=== PATIENT | female | born 1950 | race Caucasian/White ===

== ENCOUNTER 2019-02-03 10:52 | Emergency (ER) | payer OTHER ==
[~2019-02-03] VITALS: Ht 152.4 cm; Wt 68.0 kg
[~2019-02-03 10:52] MED LIST: CILOSTAZOL100 MG; COZAAR50 MG; HUMALOG100 U/ML; LANTUS100 U/ML; NAPR500T14; NEURONTIN800 MG; ZOCOR20 MG
== END 2019-02-03 18:01 | disposition home or self-care (01) ==
LOC: ER 10:52
DX: E11.65 Type 2 diabetes mellitus with hyperglycemia (principal); I87.2 Venous insufficiency (chronic) (peripheral); I77.89 Other specified disorders of arteries and arterioles; R60.0 Localized edema; M79.604 Pain in right leg

== ENCOUNTER 2022-09-03 20:13 | Inpatient (IN) | payer OTHER ==
[~2022-09-03] VITALS: Ht 152.4 cm; Wt 77.1 kg
[2022-09-05] MEDS ORDERED: ALENDRONATE SOD70 MG (08:58)
[2022-09-05] MEDS ORDERED: LISINOPRIL10 MG (08:59)
== END 2022-09-12 22:23 | disposition home or self-care (01) | DRG 280 ==
LOC: ER 20:13 → ICU-2 09-04 10:34 → MEDJ 09-05 13:32 → ICU 09-05 21:12 → MEDJ 09-08 21:18 → MEDI 09-11 11:51
PROVIDERS: ADMIT Specialist; ATTEND Specialist
PROC: B246ZZZ Ultrasonography of Right and Left Heart (ICD-10-PCS; principal; 2022-09-04)
PROC: B34JZZZ Ultrasonography of Left Upper Extremity Arteries (ICD-10-PCS; 2022-09-04)
PROC: 02HV33Z Insertion of Infusion Device into Superior Vena Cava, Percutaneous Approach (ICD-10-PCS; 2022-09-04)
PROC: 3E0F7GC Introduction of Other Therapeutic Substance into Respiratory Tract, Via Natural or Artificial Opening (ICD-10-PCS; 2022-09-04)
PROC: 5A0935A Assistance with Respiratory Ventilation, Less than 24 Consecutive Hours, High Flow/Velocity Cannula (ICD-10-PCS; 2022-09-05)
PROC: B54NZZZ Ultrasonography of Left Upper Extremity Veins (ICD-10-PCS; 2022-09-08)
PROC: BB24ZZZ Computerized Tomography (CT Scan) of Bilateral Lungs (ICD-10-PCS; 2022-09-09)
PROC: 4A12X4Z Monitoring of Cardiac Electrical Activity, External Approach (ICD-10-PCS; 2022-09-09)
DX: I21.4 Non-ST elevation (NSTEMI) myocardial infarction (principal); E11.00 Type 2 diabetes mellitus with hyperosmolarity without nonketotic hyperglycemic-hyperosmolar coma (NKHHC); J90 Pleural effusion, not elsewhere classified; Z79.4 Long term (current) use of insulin; E11.65 Type 2 diabetes mellitus with hyperglycemia; I11.0 Hypertensive heart disease with heart failure; I50.9 Heart failure, unspecified; K52.9 Noninfective gastroenteritis and colitis, unspecified

== ENCOUNTER 2023-07-17 09:06 | Inpatient (IN) | payer OTHER ==
[~2023-07-17] VITALS: Ht 157.5 cm; Wt 72.6 kg
[~2023-07-17 09:06] MED LIST changes: +ALENDRONATE SOD70 MG; +LISINOPRIL10 MG
[2023-07-17 11:28] LABS: HEMATOCRIT 28.3 % (36.0-45.00); HEMOGLOBIN 9.3 g/dL (12.0-15.00); MEAN CORPUSCULAR HGB CONC 32.9 g/dl (32.0-36.0); PLATELET COUNT 454 K/uL (150-450); RED BLOOD COUNT 3.01 M/uL (4.00-6.00); RED CELL DISTRIBUTION WIDTH 13.8 % (11.5-14.5)
[2023-07-17] MEDS ORDERED: SODIUM HYPOCHLORITE 1OZ TOP SCH (11:36)
[2023-07-17] MEDS ORDERED: CEFTRIAXONE SODIUM 1,000 MG VIAL IV ONE (13:00)
[2023-07-17 13:52] LABS: ALBUMIN 3.2 gm/dL (3.4-5.0); BILIRUBIN TOTAL 0.24 mg/dL (0.3-1.2); CALCIUM 9.6 mg/dL (8.5-10.1); CREATININE SERUM 0.87 mg/dL (0.55-1.02); GFR 63.82; GLOBULINA 4.9 G/DL (2.4-3.5); POTASSIUM 4.51 mEq/L (3.5-5.1); TOTAL PROTEIN 8.1 gm/dL (6.4-8.2)
[2023-07-17] MEDS ORDERED: CEFEPIME HCL 2,000 MG in 0.9 % SODIUM CHLORIDE 100 ML IV SCH (18:05)
[2023-07-17] MEDS ORDERED: FUROsemide 20 MG TABLET PO SCH (18:09)
[2023-07-17] MEDS ORDERED: SPIRONOLACTONE 25 MG TABLET PO SCH (18:10)
[2023-07-17] MEDS ORDERED: ENALAPRILAT DIHYDRATE 1.25 MG/ML VIAL IV PRN (18:15)
[2023-07-17] MEDS ORDERED: RINGERS SOLUTION,LACTATED 1,000 ML IV SCH (18:15)
[2023-07-17] MEDS ORDERED: INSULIN LISPRO 1,000 UNIT/10 ML UNITS SUBCUTANEO PRN (18:15)
[2023-07-17] MEDS ORDERED: DEXTROSE 50 % IN WATER 0.5 G/ML DISP.SYRIN IV PRN (18:15)
[2023-07-17] MEDS ORDERED: VANCOMYCIN HCL 1,000 MG VIAL IV ONE (18:15)
[2023-07-17] MEDS ORDERED: GABAPENTIN 800 MG TABLET PO SCH (21:00)
[2023-07-17] MEDS ORDERED: VANCOMYCIN HCL 1,000 MG VIAL IV SCH (21:00)
[2023-07-17] MEDS ORDERED: FAMOTIDINE/PF 20 MG/2 ML VIAL IV SCH (21:00)
[2023-07-18] MEDS ORDERED: ENOXAPARIN SODIUM 40 MG/0.4 ML SYRINGE SUBCUTANEO SCH (09:00)
[2023-07-18] MEDS ORDERED: ASPIRIN 81 MG TABLET.EC PO SCH (09:00)
[2023-07-18] MEDS ORDERED: VANCOMYCIN HCL 5 MG/ML REDILUIDO IV SCH (09:00)
[2023-07-18] MEDS ORDERED: IRON FUM,PS/FOLIC/BCOMP,C NO.9 1 CAP CAPSULE PO SCH (09:00)
[2023-07-18] MEDS ORDERED: CLOPIDOGREL BISULFATE 75 MG TABLET PO SCH (09:00)
[2023-07-18] MEDS ORDERED: LACTOBACILLUS ACIDOPHILUS 1 CAP CAP PO SCH (09:00)
[2023-07-18] MEDS ORDERED: KETOROLAC TROMETHAMINE 30 MG VIAL IV SCH (13:00)
[2023-07-18] MEDS ORDERED: ATORVASTATIN CALCIUM 40 MG TABLET PO SCH (17:00)
[2023-07-18] MEDS ORDERED: METROnidazole 500 MG TABLET PO SCH (19:35)
[2023-07-18 22:41] LABS: CALCIUM 8.9 mg/dL (8.5-10.1); CREATININE SERUM 1.16 mg/dL (0.55-1.02); GFR 45.79; POTASSIUM 5.26 mEq/L (3.5-5.1)
[2023-07-19 08:40] LABS: ALBUMIN 2.6 gm/dL (3.4-5.0); BILIRUBIN TOTAL 0.39 mg/dL (0.3-1.2); CALCIUM 8.7 mg/dL (8.5-10.1); CREATININE SERUM 1.06 mg/dL (0.55-1.02); GFR 50.81; GLOBULINA 3.5 G/DL (2.4-3.5); MAGNESIUM 2.1 mg/dL (1.8-2.4); PHOSPHOROUS 2.5 mg/dL (2.5-4.9); POTASSIUM 4.85 mEq/L (3.5-5.1); TOTAL PROTEIN 6.1 gm/dL (6.4-8.2); TSH 1.84 uIU/mL (0.358-3.74)
[2023-07-19 09:34] LABS: MEAN CORPUSCULAR HGB CONC 33.8 g/dl (32.0-36.0); PLATELET COUNT 388 K/uL (150-450); RED BLOOD COUNT 2.46 M/uL (4.00-6.00); RED CELL DISTRIBUTION WIDTH 14.1 % (11.5-14.5)
[2023-07-19 09:38] LABS: HEMATOCRIT 23.1 % (36.0-45.00); MEAN CORPUSCULAR HEMOGLOBIN 31.7 pg (27.00-32.0)
[2023-07-19 09:41] LABS: HEMOGLOBIN 7.8 g/dL (12.0-15.00)
[2023-07-19] MEDS ORDERED: FUROsemide 20 MG/2 ML VIAL IV SCH (09:45)
[2023-07-19] MEDS ORDERED: SODIUM POLYSTYRENE SULFONATE 15 G/4 TSP TSP PO SCH (17:00)
[2023-07-19] MEDS ORDERED: MAGNESIUM HYDROXIDE 400 MG/5 ML ML PO STA (18:42)
[2023-07-19] MEDS ORDERED: MINERAL OIL 30 ML BLIST.PACK PO STA (18:42)
[2023-07-19] MEDS ORDERED: MAGNESIUM HYDROXIDE 30 ML BLIST.PACK PO ONE (19:08)
[2023-07-19] MEDS ORDERED: DOCUSATE SODIUM 100MG CAP PO SCH (21:00)
[2023-07-20] MEDS ORDERED: FAMOtidine 20 MG TABLET PO SCH (09:00)
[2023-07-21 03:55] LABS: HEMATOCRIT 33.9 % (36.0-45.00); MEAN CORPUSCULAR HGB CONC 34.4 g/dl (32.0-36.0); PLATELET COUNT 385 K/uL (150-450); RED CELL DISTRIBUTION WIDTH 15.3 % (11.5-14.5)
[2023-07-21 03:58] LABS: HEMOGLOBIN 11.6 g/dL (12.0-15.00); MEAN CORPUSCULAR HEMOGLOBIN 30.5 pg (27.00-32.0)
[2023-07-21 04:16] LABS: ALBUMIN 2.7 gm/dL (3.4-5.0); BILIRUBIN TOTAL 0.71 mg/dL (0.3-1.2); CALCIUM 8.8 mg/dL (8.5-10.1); CREATININE SERUM 0.86 mg/dL (0.55-1.02); GFR 64.68; GLOBULINA 3.8 G/DL (2.4-3.5); MAGNESIUM 2.1 mg/dL (1.8-2.4); PHOSPHOROUS 2.3 mg/dL (2.5-4.9); POTASSIUM 3.88 mEq/L (3.5-5.1); TOTAL PROTEIN 6.5 gm/dL (6.4-8.2)
[2023-07-21] MEDS ORDERED: INSULIN LISPRO 1,000 UNIT/10 ML UNITS SUBCUTANEO STA (12:23)
[2023-07-21] MEDS ORDERED: INSULIN LISPRO 1,000 UNIT/10 ML UNITS SUBCUTANEO SCH (17:00)
[2023-07-21] MEDS ORDERED: PANTOPRAZOLE SODIUM 40 MG/VIAL VIAL IV STA (19:53)
[2023-07-21] MEDS ORDERED: POTASSIUM PHOS,M-BASIC-D-BASIC 15 MM in 0.9 % SODIUM CHLORIDE 250 ML IV NR (20:00)
[2023-07-21] MEDS ORDERED: FAMOtidine 20 MG TABLET PO SCH (21:00)
[2023-07-21 21:06] LABS: ob NEGATIVE (NEGATIVE)
[2023-07-22 07:24] LABS: HEMATOCRIT 35.4 % (36.0-45.00); MEAN CELL VOLUME 90.9 fL (80.00-100.00); MEAN CORPUSCULAR HEMOGLOBIN 30.9 pg (27.00-32.0); PLATELET COUNT 368 K/uL (150-450); RED BLOOD COUNT 3.89 M/uL (4.00-6.00)
[2023-07-22 07:52] LABS: ALBUMIN 2.6 gm/dL (3.4-5.0); BILIRUBIN TOTAL 0.59 mg/dL (0.3-1.2); CALCIUM 8.8 mg/dL (8.5-10.1); CREATININE SERUM 0.9 mg/dL (0.55-1.02); GFR 61.37; GLOBULINA 3.7 G/DL (2.4-3.5); POTASSIUM 3.98 mEq/L (3.5-5.1); TOTAL PROTEIN 6.3 gm/dL (6.4-8.2)
[2023-07-22] MEDS ORDERED: PANTOPRAZOLE SODIUM 40 MG/VIAL VIAL IV SCH (09:00)
[2023-07-23] MEDS ORDERED: AMPICILLIN SODIUM/SULBACTAM NA 3,000 MG in 0.9 % SODIUM CHLORIDE 100 ML IV SCH
[2023-07-23] MEDS ORDERED: REG INSULIN SUBCUTANEO SCH (08:00)
[2023-07-23] MEDS ORDERED: INSULIN NPH HUM SUBCUTANEO SCH (08:00)
[2023-07-23] MEDS ORDERED: levoFLOXacin IN DEXTROSE 5 % 5 MG/ML PIGGYBAG IV SCH (09:00)
[2023-07-23 11:47] LABS: HEMATOCRIT 42.6 % (36.0-45.00); HEMOGLOBIN 14.5 g/dL (12.0-15.00); MEAN CELL VOLUME 89.4 fL (80.00-100.00); MEAN CORPUSCULAR HEMOGLOBIN 30.5 pg (27.00-32.0); MEAN CORPUSCULAR HGB CONC 34.1 g/dl (32.0-36.0); PLATELET COUNT 351 K/uL (150-450); RED BLOOD COUNT 4.76 M/uL (4.00-6.00); RED CELL DISTRIBUTION WIDTH 15.7 % (11.5-14.5)
[2023-07-23] MEDS ORDERED: OxyCODONE HCL/APAP UD (PERCOCET) PO PRN (13:30)
[2023-07-23] MEDS ORDERED: ONDANSETRON HCL 2 MG/ML VIAL IV PRN (15:30)
[2023-07-24] MEDS ORDERED: METOCLOPRAMIDE HCL 10 MG in 0.9 % SODIUM CHLORIDE 50 ML IV SCH
[2023-07-24 06:06] LABS: HEMATOCRIT 39.3 % (36.0-45.00); HEMOGLOBIN 13.3 g/dL (12.0-15.00); MEAN CELL VOLUME 89.9 fL (80.00-100.00); MEAN CORPUSCULAR HEMOGLOBIN 30.5 pg (27.00-32.0); MEAN CORPUSCULAR HGB CONC 33.9 g/dl (32.0-36.0); PLATELET COUNT 321 K/uL (150-450); RED BLOOD COUNT 4.37 M/uL (4.00-6.00); RED CELL DISTRIBUTION WIDTH 15.3 % (11.5-14.5)
[2023-07-24 06:18] LABS: ALBUMIN 2.4 gm/dL (3.4-5.0); BILIRUBIN TOTAL 0.6 mg/dL (0.3-1.2); CALCIUM 8.2 mg/dL (8.5-10.1); CREATININE SERUM 0.84 mg/dL (0.55-1.02); GFR 66.46; GLOBULINA 3.7 G/DL (2.4-3.5); PHOSPHOROUS 2.5 mg/dL (2.5-4.9); POTASSIUM 4.16 mEq/L (3.5-5.1); TOTAL PROTEIN 6.1 gm/dL (6.4-8.2)
[2023-07-24] MEDS ORDERED: PANTOPRAZOLE SODIUM 40 MG/VIAL VIAL IV SCH (09:00)
[2023-07-24] MEDS ORDERED: SODIUM CL 0.9% 50 ML IV.SOLN IV ONE (17:59)
[2023-07-26 07:43] LABS: HEMATOCRIT 37.2 % (36.0-45.00); HEMOGLOBIN 12.6 g/dL (12.0-15.00); MEAN CELL VOLUME 89.8 fL (80.00-100.00); MEAN CORPUSCULAR HEMOGLOBIN 30.3 pg (27.00-32.0); MEAN CORPUSCULAR HGB CONC 33.8 g/dl (32.0-36.0); PLATELET COUNT 272 K/uL (150-450); RED BLOOD COUNT 4.15 M/uL (4.00-6.00); RED CELL DISTRIBUTION WIDTH 15.4 % (11.5-14.5)
[2023-07-26 07:58] LABS: ALBUMIN 2.4 gm/dL (3.4-5.0); BILIRUBIN TOTAL 0.46 mg/dL (0.3-1.2); CALCIUM 8.7 mg/dL (8.5-10.1); CREATININE SERUM 0.78 mg/dL (0.55-1.02); GFR 72.39; GLOBULINA 3.6 G/DL (2.4-3.5); MAGNESIUM 1.8 mg/dL (1.8-2.4); POTASSIUM 4.07 mEq/L (3.5-5.1)
[2023-07-27] MEDS ORDERED: MEPERIDINE HCL 25 MG/ML AMPUL IM SCH (14:00)
[2023-07-27] MEDS ORDERED: OxyCODONE HCL/APAP UD (PERCOCET) PO PRN (18:00)
[2023-07-28 06:39] LABS: HEMATOCRIT 36.2 % (36.0-45.00); HEMOGLOBIN 12.1 g/dL (12.0-15.00); MEAN CORPUSCULAR HEMOGLOBIN 30.5 pg (27.00-32.0); MEAN CORPUSCULAR HGB CONC 33.5 g/dl (32.0-36.0); PLATELET COUNT 231 K/uL (150-450); RED BLOOD COUNT 3.98 M/uL (4.00-6.00); RED CELL DISTRIBUTION WIDTH 15.4 % (11.5-14.5)
[2023-07-28 07:24] LABS: ALBUMIN 2.2 gm/dL (3.4-5.0); BILIRUBIN TOTAL 0.51 mg/dL (0.3-1.2); CREATININE SERUM 0.62 mg/dL (0.55-1.02); GFR 94.35; GLOBULINA 3.3 G/DL (2.4-3.5); MAGNESIUM 1.8 mg/dL (1.8-2.4); PHOSPHOROUS 2.6 mg/dL (2.5-4.9); POTASSIUM 3.82 mEq/L (3.5-5.1); TOTAL PROTEIN 5.5 gm/dL (6.4-8.2)
[2023-07-28] MEDS ORDERED: INSULIN NPH HUM/REG INSULIN HM 1,000 UNIT/10 ML UNITS SUBCUTANEO SCH (08:00)
[2023-07-28 15:42] LABS: INR 1.26; PARTIAL THROMBOPLASTIN TIME 36.2 SECONDS (22.0-34.0)
[2023-07-29 11:25] LABS: INR 1.21; PARTIAL THROMBOPLASTIN TIME 32.3 SECONDS (22.0-34.0); PROTHROMBIN TIME 12.5 SECONDS (9.0-11.5)
[2023-07-29] MEDS ORDERED: SUGAMMADEX SODIUM 200 MG/2 ML VIAL IV ONE (17:12)
[2023-07-29] MEDS ORDERED: MORPHINE SULFATE 4 MG/ML CARTRIDGE IV SCH (17:15)
[2023-07-29] MEDS ORDERED: GABAPENTIN 600 MG TABLET PO SCH (17:16)
[2023-07-29] MEDS ORDERED: KETOROLAC TROMETHAMINE 30 MG VIAL IV SCH (18:00)
[2023-07-29] MEDS ORDERED: ONDANSETRON HCL 2 MG/ML VIAL ONE (18:46)
[2023-07-30 05:10] LABS: HEMATOCRIT 31.1 % (36.0-45.00); MEAN CELL VOLUME 90.8 fL (80.00-100.00); PLATELET COUNT 217 K/uL (150-450); RED BLOOD COUNT 3.42 M/uL (4.00-6.00); RED CELL DISTRIBUTION WIDTH 15.5 % (11.5-14.5)
[2023-07-30 05:17] LABS: HEMOGLOBIN 10.3 g/dL (12.0-15.00); MEAN CORPUSCULAR HEMOGLOBIN 30.1 pg (27.00-32.0)
[2023-07-30 05:42] LABS: BILIRUBIN TOTAL 0.46 mg/dL (0.3-1.2); CALCIUM 7.9 mg/dL (8.5-10.1); CREATININE SERUM 0.78 mg/dL (0.55-1.02); GFR 72.39; GLOBULINA 3.2 G/DL (2.4-3.5); MAGNESIUM 1.7 mg/dL (1.8-2.4); PHOSPHOROUS 3.2 mg/dL (2.5-4.9); POTASSIUM 3.7 mEq/L (3.5-5.1); TOTAL PROTEIN 5.2 gm/dL (6.4-8.2)
[2023-07-30] MEDS ORDERED: MAGNESIUM SULFATE IN WATER 50 ML IV ONE (10:15)
[2023-07-30] MEDS ORDERED: LACTULOSE 20 G/30 ML BLIST.PACK PO STA (13:07)
[2023-07-30] MEDS ORDERED: MAGNESIUM HYDROXIDE 30 ML BLIST.PACK PO STA (13:07)
[2023-07-30] MEDS ORDERED: MINERAL OIL 30 ML BLIST.PACK PO STA (13:07)
[2023-07-30] MEDS ORDERED: DOCUSATE SODIUM 100MG CAP PO SCH (17:20)
[2023-07-31] MEDS ORDERED: RINGERS SOLUTION,LACTATED 500 ML IV STA (20:44)
[2023-07-31] MEDS ORDERED: METOCLOPRAMIDE HCL 10 MG in DEXTROSE 5 % IN WATER 50 ML IV ONE (21:00)
[2023-07-31] MEDS ORDERED: NA PHOS,M-B/NA PHOS,DI-BA 1 BOTTLE ENEMA RECTAL ONE (21:00)
[2023-08-01 09:01] LABS: BILIRUBIN TOTAL 0.43 mg/dL (0.3-1.2); CREATININE SERUM 1.09 mg/dL (0.55-1.02); GFR 49.2; GLOBULINA 3.3 G/DL (2.4-3.5); PHOSPHOROUS 2.6 mg/dL (2.5-4.9); POTASSIUM 4.5 mEq/L (3.5-5.1); TOTAL PROTEIN 5.3 gm/dL (6.4-8.2)
[2023-08-01 09:03] LABS: HEMATOCRIT 28.7 % (36.0-45.00); HEMOGLOBIN 9.8 g/dL (12.0-15.00); MEAN CELL VOLUME 91.5 fL (80.00-100.00); MEAN CORPUSCULAR HEMOGLOBIN 31.1 pg (27.00-32.0); PLATELET COUNT 181 K/uL (150-450); RED BLOOD COUNT 3.14 M/uL (4.00-6.00); RED CELL DISTRIBUTION WIDTH 15.7 % (11.5-14.5)
[2023-08-01] MEDS ORDERED: INTEGRA PLUS C1 EACH PO ×2 (14:33→14:36)
[2023-08-01] MEDS ORDERED: LIPITOR40 M1 PO (14:34)
[2023-08-01] MEDS ORDERED: ST. JOSEPH ASPI81 M2 PO (14:34)
[2023-08-01] MEDS ORDERED: GABAPENTIN800 M1 PO (14:35)
[2023-08-01] MEDS ORDERED: COLACE100 MG PO (14:35)
[2023-08-01] MEDS ORDERED: PRE PROTEIN1 EACH PO (14:36)
[2023-08-01] MEDS ORDERED: INTESTINEX680 M1 PO (14:36)
[2023-08-01] MEDS ORDERED: TOPROL XL25 M1 PO (14:37)
[2023-08-01] MEDS ORDERED: PANTOPRAZOLE SO20 MG PO (14:38)
== END 2023-08-01 22:42 | disposition home or self-care (01) | DRG 617 ==
LOC: ER 09:06 → MEDJ 18:27
PROVIDERS: Emergency Medicine; Internal Medicine; Internal Medicine Endocrinology, Diabetes & Metabolism; Internal Medicine Infectious Disease; Specialist; ADMIT Internal Medicine; ATTEND Internal Medicine
PROC: B24BZZZ Ultrasonography of Heart with Aorta (ICD-10-PCS; 2023-07-17)
PROC: 0JBQ0ZZ Excision of Right Foot Subcutaneous Tissue and Fascia, Open Approach (ICD-10-PCS; 2023-07-18)
PROC: 30233N1 Transfusion of Nonautologous Red Blood Cells into Peripheral Vein, Percutaneous Approach (ICD-10-PCS; 2023-07-19)
PROC: B44FZZZ Ultrasonography of Right Lower Extremity Arteries (ICD-10-PCS; 2023-07-19)
PROC: BQ3 Imaging, Non-Axial Lower Bones, Magnetic Resonance Imaging (MRI) (ICD-10-PCS; 2023-07-20)
PROC: 0JDQ0ZZ Extraction of Right Foot Subcutaneous Tissue and Fascia, Open Approach (ICD-10-PCS; 2023-07-23)
PROC: 02HV33Z Insertion of Infusion Device into Superior Vena Cava, Percutaneous Approach (ICD-10-PCS; 2023-07-24)
PROC: B54MZZZ Ultrasonography of Right Upper Extremity Veins (ICD-10-PCS; 2023-07-27)
PROC: 0Y6C0Z2 Detachment at Right Upper Leg, Mid, Open Approach (ICD-10-PCS; principal; 2023-07-29 13:00)
DX: E11.621 Type 2 diabetes mellitus with foot ulcer (principal); I50.20 Unspecified systolic (congestive) heart failure; L03.115 Cellulitis of right lower limb; L97.413 Non-pressure chronic ulcer of right heel and midfoot with necrosis of muscle; E11.51 Type 2 diabetes mellitus with diabetic peripheral angiopathy without gangrene; Z79.4 Long term (current) use of insulin; I25.10 Atherosclerotic heart disease of native coronary artery without angina pectoris; E11.65 Type 2 diabetes mellitus with hyperglycemia; N17.9 Acute kidney failure, unspecified; D64.9 Anemia, unspecified; E78.5 Hyperlipidemia, unspecified; I11.0 Hypertensive heart disease with heart failure; B95.2 Enterococcus as the cause of diseases classified elsewhere; B96.5 Pseudomonas (aeruginosa) (mallei) (pseudomallei) as the cause of diseases classified elsewhere
CPT/HCPCS: 73722

== ENCOUNTER 2023-08-02 16:01 | Inpatient (IN) | payer OTHER ==
[~2023-08-02] VITALS: Ht 162.6 cm; Wt 68.0 kg
[~2023-08-02 16:01] MED LIST changes: +COLACE100 MG PO; +GABAPENTIN800 M1 PO; +INTEGRA PLUS C1 EACH PO; +INTESTINEX680 M1 PO; +LIPITOR40 M1 PO; +PANTOPRAZOLE SO20 MG PO; +PRE PROTEIN1 EACH PO; +ST. JOSEPH ASPI81 M2 PO; +TOPROL XL25 M1 PO
[2023-08-02 16:44] LABS: ABG PO2 83.9 mmHg (80-100); ABG pCO2 35.5 mmHg (35-45); BICARBONATE 19.6 mmol/l (23-25); SaO2 95.6 %; Tco2 20.7 mmol/l
[2023-08-02 16:45] LABS: allen test SATISFACTORY; o2 100 %; puncture site RADIAL LEFT
[2023-08-02 16:57] LABS: URINE APPEARANCE Clear; URINE BILIRRUBIN Small (NEGATIVE); URINE BLOOD Negative; URINE COLOR Dark Yellow; URINE GLUCOSE Negative (NEGATIVE); URINE LEUKOCYTE Trace; URINE NITRATE Negative; URINE PROTEIN Trace (NEGATIVE); URINE UROBILINOGEN 0.2 E.U./dl
[2023-08-02 16:59] LABS: HEMOGLOBIN 10.3 g/dL (12.0-15.00); MEAN CELL VOLUME 90.1 fL (80.00-100.00); MEAN CORPUSCULAR HGB CONC 33.3 g/dl (32.0-36.0); PLATELET COUNT 324 K/uL (150-450); RED BLOOD COUNT 3.44 M/uL (4.00-6.00); RED CELL DISTRIBUTION WIDTH 15.7 % (11.5-14.5)
[2023-08-02 17:01] LABS: URINE BACTERIA 62.9 uL (0.0-1933); URINE EPITHELIAL CELLS 14.2 uL (0.0-38.8); URINE RBC 72.7 uL (0.0-20.8); URINE WBC 49.1 uL (0.0-23.2)
[2023-08-02] MEDS ORDERED: FUROsemide 40 MG/4 ML VIAL IV ONE (17:15)
[2023-08-02] MEDS ORDERED: NITROGLYCERIN IN 5 % DEXTROSE 250 ML IV ONE (17:15)
[2023-08-02 17:17] LABS: ALBUMIN 2.2 gm/dL (3.4-5.0); BILIRUBIN TOTAL 0.63 mg/dL (0.3-1.2); CALCIUM 8.5 mg/dL (8.5-10.1); CREATININE SERUM 1.15 mg/dL (0.55-1.02); GFR 46.25; GLOBULINA 4.4 G/DL (2.4-3.5); POTASSIUM 3.98 mEq/L (3.5-5.1); TOTAL PROTEIN 6.6 gm/dL (6.4-8.2)
[2023-08-02 17:39] LABS: D DIMER 2.53 MG/L; INR 1.2; PARTIAL THROMBOPLASTIN TIME 29.3 SECONDS (22.0-34.0); PROTHROMBIN TIME 12.4 SECONDS (9.0-11.5)
[2023-08-02] MEDS ORDERED: IPRATROPIUM BROMIDE 0.5 MG/2.5 ML AMPUL.NEB IH SCH (19:55)
[2023-08-02] MEDS ORDERED: ATORVASTATIN CALCIUM 40 MG TABLET PO SCH (20:01)
[2023-08-02] MEDS ORDERED: levoFLOXacin IN DEXTROSE 5 % 100 ML IV SCH (20:03)
[2023-08-02] MEDS ORDERED: ASPIRIN 81 MG TAB.CHEW PO SCH (20:03)
[2023-08-02] MEDS ORDERED: ENOXAPARIN SODIUM 30 MG/0.3 ML SYRINGE SUBCUTANEO SCH (20:06)
[2023-08-02] MEDS ORDERED: ACETAMINOPHEN 500 MG GEL..CAP PO PRN (20:15)
[2023-08-02] MEDS ORDERED: INSULIN LISPRO 1,000 UNIT/10 ML UNITS SUBCUTANEO PRN (20:45)
[2023-08-02] MEDS ORDERED: DEXTROSE 50 % IN WATER 0.5 G/ML DISP.SYRIN IV PRN (20:45)
[2023-08-02 22:43] LABS: ABG PH 7.449 (7.35-7.45); ABG PO2 206.1 mmHg (80-100); ABG pCO2 34.4 mmHg (35-45); BASE EXCESS 0 mmol/l; BICARBONATE 23.4 mmol/l (23-25); SaO2 99.8 %; Tco2 24.4 mmol/l
[2023-08-02 22:44] LABS: allen test SATISFACTORY; o2 100 %; puncture site RADIAL RIGHT
[2023-08-03] MEDS ORDERED: FUROsemide 20 MG/2 ML VIAL IV SCH (01:00)
[2023-08-03] MEDS ORDERED: FAMOTIDINE/PF 20 MG in 0.9 % SODIUM CHLORIDE 8 ML IV PUSH SCH (09:00)
[2023-08-03] MEDS ORDERED: FUROsemide 40 MG/4 ML VIAL IV SCH (09:00)
[2023-08-03] MEDS ORDERED: CLOPIDOGREL BISULFATE 75 MG TABLET PO SCH (22:01)
[2023-08-04 06:38] LABS: ABG PH 7.455 (7.35-7.45); ABG PO2 122.1 mmHg (80-100); BASE EXCESS 6.1 mmol/l; BICARBONATE 30.9 mmol/l (23-25); Tco2 32.3 mmol/l; allen test SATISFACTORY; puncture site RADIAL RIGHT
[2023-08-04 06:39] LABS: o2 50 %
[2023-08-04 07:08] LABS: BILIRUBIN TOTAL 0.59 mg/dL (0.3-1.2); CALCIUM 8.1 mg/dL (8.5-10.1); CHOL HDL RATIO 2.8 (0-5.0); CREATININE SERUM 0.89 mg/dL (0.55-1.02); GFR 62.17; GLOBULINA 4.1 G/DL (2.4-3.5); MAGNESIUM 1.9 mg/dL (1.8-2.4); PHOSPHOROUS 2.6 mg/dL (2.5-4.9); POTASSIUM 3.4 mEq/L (3.5-5.1); TOTAL PROTEIN 6.1 gm/dL (6.4-8.2)
[2023-08-04] MEDS ORDERED: ISOSORBIDE MONONITRATE 30 MG TABLET PO SCH (10:01)
[2023-08-04] MEDS ORDERED: POTASSIUM BICARBONATE/CIT AC 25 MEQ TABLET.EFF PO SCH (11:19)
[2023-08-04] MEDS ORDERED: MINERAL OIL 30 ML BLIST.PACK PO STA (11:37)
[2023-08-04] MEDS ORDERED: LACTULOSE 20 G/30 ML BLIST.PACK PO STA (11:38)
[2023-08-04] MEDS ORDERED: MAGNESIUM HYDROXIDE 30 ML BLIST.PACK PO STA (11:38)
[2023-08-04] MEDS ORDERED: TRAMADOL HCL 50 MG TABLET PO PRN (11:45)
[2023-08-04] MEDS ORDERED: METOPROLOL TARTRATE 25 MG TABLET PO SCH (17:00)
[2023-08-04] MEDS ORDERED: CANDESARTAN CILEXETIL 8 MG TAB PO SCH (17:00)
[2023-08-04] MEDS ORDERED: GABAPENTIN 800 MG TABLET PO SCH (21:00)
[2023-08-04] MEDS ORDERED: ENOXAPARIN SODIUM 60 MG/0.6 ML SYRINGE SUBCUTANEO SCH (21:00)
[2023-08-04 21:40] LABS: TP PLEURAL FLUID 1.2 g/dl
[2023-08-04 22:17] LABS: PLEURAL FLUID APPEARANCE CRYSTAL CLEAR; PLEURAL FLUID COLOR YELLOW; POLYMORPHONUCLEAR 34 %
[2023-08-04 22:18] LABS: MONONUCLEAR 66 %
[2023-08-05] MEDS ORDERED: NOREPINEPHRINE BITARTRATE 1 MG/ML AMPUL IV SCH (06:45)
[2023-08-05 06:46] LABS: HEMATOCRIT 27.6 % (36.0-45.00); HEMOGLOBIN 9.5 g/dL (12.0-15.00); MEAN CELL VOLUME 89.3 fL (80.00-100.00); MEAN CORPUSCULAR HEMOGLOBIN 30.6 pg (27.00-32.0); MEAN CORPUSCULAR HGB CONC 34.3 g/dl (32.0-36.0); PLATELET COUNT 297 K/uL (150-450); RED BLOOD COUNT 3.09 M/uL (4.00-6.00); RED CELL DISTRIBUTION WIDTH 15.3 % (11.5-14.5)
[2023-08-05 06:59] LABS: ALBUMIN 1.9 gm/dL (3.4-5.0); BILIRUBIN TOTAL 0.48 mg/dL (0.3-1.2); CALCIUM 7.8 mg/dL (8.5-10.1); CREATININE SERUM 0.85 mg/dL (0.55-1.02); GFR 65.56; GLOBULINA 3.7 G/DL (2.4-3.5); POTASSIUM 3.6 mEq/L (3.5-5.1); TOTAL PROTEIN 5.6 gm/dL (6.4-8.2)
[2023-08-05] MEDS ORDERED: NOREPINEPHRINE BITARTRATE 8 MG in DEXTROSE 5 % IN WATER 250 ML IV SCH (07:00)
[2023-08-05] MEDS ORDERED: FUROsemide 20 MG/2 ML VIAL IV SCH (09:00)
[2023-08-05] MEDS ORDERED: METOPROLOL TARTRATE 25 MG TABLET PO SCH (09:00)
[2023-08-05] MEDS ORDERED: ENOXAPARIN SODIUM 40 MG/0.4 ML SYRINGE SUBCUTANEO SCH (09:00)
[2023-08-05 10:55] LABS: ABG PH 7.468 (7.35-7.45); ABG PO2 151.1 mmHg (80-100); ABG pCO2 44.7 mmHg (35-45); SaO2 99.5 %
[2023-08-05 10:56] LABS: BICARBONATE 31.7 mmol/l (23-25); Tco2 33.1 mmol/l
[2023-08-05 10:57] LABS: allen test SATISFACTORY; o2 50 %; puncture site RADIAL RIGHT
[2023-08-05] MEDS ORDERED: AMINO ACIDS 1 EACH TABLET PO SCH (13:00)
[2023-08-05 14:50] LABS: PH,URINE 5.5 (5.0-8.0); URINE APPEARANCE Cloudy; URINE BILIRRUBIN Negative (NEGATIVE); URINE BLOOD Small; URINE COLOR Yellow; URINE GLUCOSE Negative (NEGATIVE); URINE LEUKOCYTE Moderate; URINE NITRATE Negative; URINE PROTEIN 30 (NEGATIVE)
[2023-08-05 15:02] LABS: CALCIUM 7.9 mg/dL (8.5-10.1); CREATININE SERUM 0.94 mg/dL (0.55-1.02); GFR 58.37; POTASSIUM 4.02 mEq/L (3.5-5.1)
[2023-08-05 15:14] LABS: URINE BACTERIA 141.1 uL (0.0-1933); URINE EPITHELIAL CELLS 16.8 uL (0.0-38.8); URINE RBC 125.8 uL (0.0-20.8); URINE WBC 417.6 uL (0.0-23.2)
[2023-08-05] MEDS ORDERED: NYSTATIN 30 GM,SILVER SULFADIAZINE 50 GM,ZINC OXIDE 30 GM TOP PRN (15:15)
[2023-08-05 15:17] LABS: URINE YEAST FEW /hpf
[2023-08-05] MEDS ORDERED: VANCOMYCIN HCL 5 MG/ML REDILUIDO IV SCH (17:00)
[2023-08-05] MEDS ORDERED: CALCIUM CARBONATE/VITAMIN D3 1 TAB TABLET PO SCH (17:00)
[2023-08-06 05:26] LABS: HEMATOCRIT 30.6 % (36.0-45.00); HEMOGLOBIN 10.3 g/dL (12.0-15.00); MEAN CORPUSCULAR HEMOGLOBIN 30.5 pg (27.00-32.0); MEAN CORPUSCULAR HGB CONC 33.5 g/dl (32.0-36.0); PLATELET COUNT 372 K/uL (150-450); RED BLOOD COUNT 3.36 M/uL (4.00-6.00); RED CELL DISTRIBUTION WIDTH 15.7 % (11.5-14.5)
[2023-08-06 05:38] LABS: ALBUMIN 1.9 gm/dL (3.4-5.0); BILIRUBIN TOTAL 0.56 mg/dL (0.3-1.2); CALCIUM 7.2 mg/dL (8.5-10.1); CREATININE SERUM 0.73 mg/dL (0.55-1.02); GFR 78.15; GLOBULINA 3.5 G/DL (2.4-3.5); POTASSIUM 3.06 mEq/L (3.5-5.1); TOTAL PROTEIN 5.4 gm/dL (6.4-8.2)
[2023-08-06] MEDS ORDERED: INSULIN NPH HUM/REG INSULIN HM 1,000 UNIT/10 ML UNITS SUBCUTANEO SCH (08:00)
[2023-08-06] MEDS ORDERED: POTASSIUM CHLORIDE IN WATER 100 ML IV ONE (12:15)
[2023-08-06] MEDS ORDERED: VANCOMYCIN HCL 5 MG/ML REDILUIDO IV SCH (17:00)
[2023-08-06] MEDS ORDERED: MAGNESIUM HYDROXIDE 30 ML BLIST.PACK PO ONE (17:30)
[2023-08-06] MEDS ORDERED: MINERAL OIL 30 ML BLIST.PACK PO ONE (17:30)
[2023-08-06] MEDS ORDERED: LACTULOSE 20 G/30 ML BLIST.PACK PO ONE (17:30)
[2023-08-07] MEDS ORDERED: INSULIN NPH HUM/REG INSULIN HM 1,000 UNIT/10 ML UNITS SUBCUTANEO SCH (08:50)
[2023-08-07] MEDS ORDERED: ONDANSETRON HCL 4 MG in 0.9 % SODIUM CHLORIDE 50 ML IV PRN (12:00)
[2023-08-07] MEDS ORDERED: FUROsemide 20 MG/2 ML VIAL IV SCH (12:00)
[2023-08-08 08:10] LABS: HEMATOCRIT 29.4 % (36.0-45.00); HEMOGLOBIN 10.1 g/dL (12.0-15.00); MEAN CELL VOLUME 90.7 fL (80.00-100.00); MEAN CORPUSCULAR HEMOGLOBIN 31.2 pg (27.00-32.0); MEAN CORPUSCULAR HGB CONC 34.4 g/dl (32.0-36.0); PLATELET COUNT 301 K/uL (150-450); RED BLOOD COUNT 3.24 M/uL (4.00-6.00); RED CELL DISTRIBUTION WIDTH 15.7 % (11.5-14.5)
[2023-08-08 09:13] LABS: ALBUMIN 2.2 gm/dL (3.4-5.0); BILIRUBIN TOTAL 0.58 mg/dL (0.3-1.2); CALCIUM 8.5 mg/dL (8.5-10.1); CREATININE SERUM 0.72 mg/dL (0.55-1.02); GFR 79.4; MAGNESIUM 2.4 mg/dL (1.8-2.4); PHOSPHOROUS 2.3 mg/dL (2.5-4.9); POTASSIUM 4.18 mEq/L (3.5-5.1); TOTAL PROTEIN 5.2 gm/dL (6.4-8.2)
[2023-08-08] MEDS ORDERED: METOPROLOL TARTRATE 25 MG TABLET PO SCH (21:00)
[2023-08-08] MEDS ORDERED: GABAPENTIN 300 MG CAPSULE PO SCH (21:00)
[2023-08-09] MEDS ORDERED: GABAPENTIN 100 MG CAPSULE PO SCH (09:00)
[2023-08-09] MEDS ORDERED: VITAMIN B COMPLEX/LYSINE 1 ML ML PO SCH ×2 (11:00→13:00)
[2023-08-09] MEDS ORDERED: AMINO ACIDS/PROTEIN HYDROLYS 30 ML BLIST.PACK PO SCH (17:00)
[2023-08-09] MEDS ORDERED: MIDODRINE HCL 2.5 MG TABLET PO SCH (17:00)
[2023-08-10 06:16] LABS: HEMATOCRIT 31.1 % (36.0-45.00); HEMOGLOBIN 10.6 g/dL (12.0-15.00); MEAN CELL VOLUME 91.2 fL (80.00-100.00); MEAN CORPUSCULAR HEMOGLOBIN 31.1 pg (27.00-32.0); MEAN CORPUSCULAR HGB CONC 34.1 g/dl (32.0-36.0); PLATELET COUNT 314 K/uL (150-450); RED BLOOD COUNT 3.41 M/uL (4.00-6.00); RED CELL DISTRIBUTION WIDTH 16.4 % (11.5-14.5)
[2023-08-10 06:34] LABS: CALCIUM 9.1 mg/dL (8.5-10.1); CREATININE SERUM 0.68 mg/dL (0.55-1.02); GFR 84.81; POTASSIUM 3.98 mEq/L (3.5-5.1)
[2023-08-10] MEDS ORDERED: MIDODRINE HCL 10 MG TABLET PO SCH (09:00)
[2023-08-10] MEDS ORDERED: ENOXAPARIN SODIUM 60 MG/0.6 ML SYRINGE SUBCUTANEO SCH (09:00)
[2023-08-10 09:31] LABS: ABG PH 7.436 (7.35-7.45); BASE EXCESS 3.6 mmol/l; BICARBONATE 28.3 mmol/l (23-25); SaO2 99.6 %
[2023-08-10 09:32] LABS: Tco2 29.6 mmol/l; allen test SATISFACTORY; o2 32 %; puncture site RADIAL RIGHT
[2023-08-11] MEDS ORDERED: INSULIN NPH HUM/REG INSULIN HM 1,000 UNIT/10 ML UNITS SUBCUTANEO SCH (08:00)
[2023-08-11] MEDS ORDERED: GABAPENTIN 100 MG CAPSULE PO SCH (17:00)
== END 2023-08-12 11:15 | disposition designated cancer center or children's hospital (05) | DRG 280 ==
LOC: ER 16:01 → ICU-2 20:25 → ICU 08-06 19:18
PROVIDERS: General Practice; Internal Medicine; Internal Medicine Infectious Disease; Radiology Vascular & Interventional Radiology; ADMIT Internal Medicine; ATTEND Internal Medicine
PROC: B24BZZZ Ultrasonography of Heart with Aorta (ICD-10-PCS; 2023-08-02)
PROC: 02HV33Z Insertion of Infusion Device into Superior Vena Cava, Percutaneous Approach (ICD-10-PCS; 2023-08-03)
PROC: 0W993ZX Drainage of Right Pleural Cavity, Percutaneous Approach, Diagnostic (ICD-10-PCS; principal; 2023-08-04)
PROC: BW24YZZ Computerized Tomography (CT Scan) of Chest and Abdomen using Other Contrast (ICD-10-PCS; 2023-08-04)
DX: I13.0 Hypertensive heart and chronic kidney disease with heart failure and stage 1 through stage 4 chronic kidney disease, or unspecified chronic kidney disease (principal); I21.A1 Myocardial infarction type 2; J18.9 Pneumonia, unspecified organism; R57.0 Cardiogenic shock; I50.20 Unspecified systolic (congestive) heart failure; N17.9 Acute kidney failure, unspecified; N39.0 Urinary tract infection, site not specified; Z79.4 Long term (current) use of insulin; I25.10 Atherosclerotic heart disease of native coronary artery without angina pectoris; E11.22 Type 2 diabetes mellitus with diabetic chronic kidney disease; N18.9 Chronic kidney disease, unspecified; E11.65 Type 2 diabetes mellitus with hyperglycemia; E78.5 Hyperlipidemia, unspecified; D63.1 Anemia in chronic kidney disease; E87.6 Hypokalemia
CPT/HCPCS: 71275

== ENCOUNTER 2023-12-18 04:45 | Emergency (ER) | payer OTHER ==
[~2023-12-18] VITALS: Ht 134.6 cm; Wt 54.4 kg
[2023-12-18 07:05] LABS: HEMATOCRIT 31.1 % (36.0-45.00); HEMOGLOBIN 10.9 g/dL (12.0-15.00); MEAN CELL VOLUME 94.6 fL (80.00-100.00); MEAN CORPUSCULAR HEMOGLOBIN 33.3 pg (27.00-32.0); MEAN CORPUSCULAR HGB CONC 35.2 g/dl (32.0-36.0); PLATELET COUNT 279 K/uL (150-450); RED BLOOD COUNT 3.29 M/uL (4.00-6.00); RED CELL DISTRIBUTION WIDTH 13.5 % (11.5-14.5)
[2023-12-18 07:29] LABS: ALBUMIN 3.5 gm/dL (3.4-5.0); BILIRUBIN TOTAL 0.36 mg/dL (0.3-1.2); CREATININE SERUM 0.9 mg/dL (0.55-1.02); GFR 61.21; GLOBULINA 3.7 G/DL (2.4-3.5); POTASSIUM 4.49 mEq/L (3.5-5.1); TOTAL PROTEIN 7.2 gm/dL (6.4-8.2)
[2023-12-18 07:56] LABS: INR 1.05; PARTIAL THROMBOPLASTIN TIME 24.3 SECONDS (22.0-34.0)
[2023-12-18 09:32] LABS: URINE APPEARANCE Clear; URINE BILIRRUBIN Negative (NEGATIVE); URINE BLOOD Negative; URINE COLOR Yellow; URINE GLUCOSE Negative (NEGATIVE); URINE LEUKOCYTE Trace; URINE NITRATE Positive; URINE PROTEIN Negative (NEGATIVE); URINE UROBILINOGEN 0.2 E.U./dl
[2023-12-18 09:35] LABS: URINE EPITHELIAL CELLS 2.4 uL (0.0-38.8); URINE WBC 49.9 uL (0.0-23.2)
[2023-12-18 09:44] LABS: URINE BACTERIA > 9821.5 uL (0.0-1933); URINE RBC 0.7 uL (0.0-20.8)
[2023-12-18] MEDS ORDERED: CEFTRIAXONE SODIUM 1,000 MG VIAL IV STA (10:21)
[2023-12-18] MEDS ORDERED: CEFTRIAXONE SODIUM 1,000 MG VIAL ONE (10:47)
== END 2023-12-18 11:19 | disposition home or self-care (01) ==
LOC: ER 04:45
DX: R53.81 Other malaise (principal); N39.0 Urinary tract infection, site not specified; I10 Essential (primary) hypertension; E11.9 Type 2 diabetes mellitus without complications; Z79.4 Long term (current) use of insulin
CPT/HCPCS: 36415; 96365; 99282; J0696

== ENCOUNTER 2023-12-22 04:59 | Emergency (ER) | payer OTHER ==
[~2023-12-22] VITALS: Ht 157.5 cm; Wt 68.0 kg
[2023-12-22] MEDS ORDERED: METOCLOPRAMIDE HCL 5 MG/ML VIAL IM STA (05:31)
== END 2023-12-22 09:40 | disposition home or self-care (01) ==
LOC: ER 04:59
DX: K59.01 Slow transit constipation (principal); R12 Heartburn; E11.9 Type 2 diabetes mellitus without complications; Z79.4 Long term (current) use of insulin
CPT/HCPCS: 96372; 99282; J2765

== ENCOUNTER 2023-12-30 17:20 | Emergency (ER) | payer OTHER ==
[~2023-12-30] VITALS: Ht 134.6 cm; Wt 68.0 kg
[2023-12-30] MEDS ORDERED: ONDANSETRON HCL 2 MG/ML VIAL IV ONE (17:45)
[2023-12-30] MEDS ORDERED: 0.9 % SODIUM CHLORIDE 500 ML IV ONE (17:45)
[2023-12-30] MEDS ORDERED: FAMOtidine 10 MG/ML (4ML VIAL) IV ONE (17:45)
[2023-12-30 18:57] LABS: HEMATOCRIT 35.6 % (36.0-45.00); HEMOGLOBIN 12.3 g/dL (12.0-15.00); MEAN CELL VOLUME 94.3 fL (80.00-100.00); MEAN CORPUSCULAR HEMOGLOBIN 32.5 pg (27.00-32.0); MEAN CORPUSCULAR HGB CONC 34.5 g/dl (32.0-36.0); PLATELET COUNT 308 K/uL (150-450); RED BLOOD COUNT 3.77 M/uL (4.00-6.00); RED CELL DISTRIBUTION WIDTH 12.6 % (11.5-14.5)
[2023-12-30 19:16] LABS: BILIRUBIN TOTAL 0.48 mg/dL (0.3-1.2); CALCIUM 9.5 mg/dL (8.5-10.1); CREATININE SERUM 1.11 mg/dL (0.55-1.02); GFR 48.05; GLOBULINA 3.9 G/DL (2.4-3.5); POTASSIUM 4.34 mEq/L (3.5-5.1); TOTAL PROTEIN 7.9 gm/dL (6.4-8.2)
== END 2023-12-30 21:30 | disposition home or self-care (01) ==
LOC: ER 17:20
PROVIDERS: General Practice
DX: K29.70 Gastritis, unspecified, without bleeding (principal); K21.9 Gastro-esophageal reflux disease without esophagitis; E78.00 Pure hypercholesterolemia, unspecified; I10 Essential (primary) hypertension; I25.2 Old myocardial infarction; Z89.612 Acquired absence of left leg above knee; Z89.611 Acquired absence of right leg above knee
CPT/HCPCS: 36415; 71045; 93005; 96365; 99283; J2405; J3490; J7042

== ENCOUNTER 2024-01-01 11:59 | Emergency (ER) | payer OTHER ==
[~2024-01-01] VITALS: Ht 134.6 cm; Wt 68.0 kg
[2024-01-01] MEDS ORDERED: 0.9 % SODIUM CHLORIDE 500 ML IV ONE (12:45)
[2024-01-01] MEDS ORDERED: FAMOtidine 10 MG/ML (4ML VIAL) IV STA (12:47)
[2024-01-01] MEDS ORDERED: ONDANSETRON HCL 2 MG/ML VIAL IV STA (12:48)
[2024-01-01] MEDS ORDERED: METOCLOPRAMIDE HCL 10 MG in 0.9 % SODIUM CHLORIDE 50 ML IV NR (13:00)
[2024-01-01 14:24] LABS: HEMATOCRIT 34.7 % (36.0-45.00); HEMOGLOBIN 11.8 g/dL (12.0-15.00); MEAN CELL VOLUME 94.5 fL (80.00-100.00); MEAN CORPUSCULAR HEMOGLOBIN 32.1 pg (27.00-32.0); MEAN CORPUSCULAR HGB CONC 33.9 g/dl (32.0-36.0); PLATELET COUNT 284 K/uL (150-450); RED BLOOD COUNT 3.67 M/uL (4.00-6.00); RED CELL DISTRIBUTION WIDTH 13.2 % (11.5-14.5)
[2024-01-01 14:51] LABS: ALBUMIN 3.7 gm/dL (3.4-5.0); BILIRUBIN TOTAL 0.52 mg/dL (0.3-1.2); BILIRUBIN,CONJUGATED 0.16 mg/dL (0.0-0.2); BILIRUBIN,UNCONJUGATED 0.36 mg/dL (0.0-0.6); CALCIUM 9.2 mg/dL (8.5-10.1); CREATININE SERUM 0.96 mg/dL (0.55-1.02); GFR 56.81; POTASSIUM 4.12 mEq/L (3.5-5.1); TOTAL PROTEIN 7.4 gm/dL (6.4-8.2)
[2024-01-01 15:19] LABS: URINE APPEARANCE Clear; URINE BILIRRUBIN Negative (NEGATIVE); URINE BLOOD Negative; URINE COLOR Yellow; URINE GLUCOSE Negative (NEGATIVE); URINE LEUKOCYTE Trace; URINE NITRATE Negative; URINE PROTEIN Negative (NEGATIVE); URINE UROBILINOGEN 0.2 E.U./dl
[2024-01-01 15:22] LABS: URINE EPITHELIAL CELLS 5.1 uL (0.0-38.8); URINE WBC 10.8 uL (0.0-23.2)
[2024-01-01 15:32] LABS: URINE BACTERIA > 9821.5 uL (0.0-1933); URINE RBC 1.8 uL (0.0-20.8)
[2024-01-01] MEDS ORDERED: CEFTRIAXONE SODIUM 1,000 MG VIAL IV STA (15:57)
== END 2024-01-01 21:12 | disposition home or self-care (01) ==
LOC: ER 11:59
PROVIDERS: General Practice
DX: K29.70 Gastritis, unspecified, without bleeding (principal); R10.9 Unspecified abdominal pain; I10 Essential (primary) hypertension; E11.9 Type 2 diabetes mellitus without complications; Z79.4 Long term (current) use of insulin
CPT/HCPCS: 36415; 71046; 93005; 96365; 96366; 99283; J0696; J2405; J2765; J3490; J7042

== ENCOUNTER 2024-01-13 14:10 | Emergency (ER) | payer OTHER ==
[~2024-01-13] VITALS: Ht 157.5 cm; Wt 68.0 kg
[2024-01-13] MEDS ORDERED: METOCLOPRAMIDE HCL 5 MG/ML VIAL IM STA (18:17)
[2024-01-13] MEDS ORDERED: ONDANSETRON HCL 2 MG/ML VIAL IV STA (18:18)
[2024-01-13] MEDS ORDERED: FAMOtidine 10 MG/ML (4ML VIAL) IV PUSH STA (18:18)
[2024-01-13] MEDS ORDERED: ONDANSETRON HCL 2 MG/ML VIAL ONE ×2 (18:42→23:14)
[2024-01-13] MEDS ORDERED: FAMOtidine 200mg/20ml VIAL ONE (18:42)
[2024-01-13] MEDS ORDERED: ONDANSETRON HCL 2 MG/ML VIAL IM STA (22:52)
== END 2024-01-14 00:57 | disposition home or self-care (01) ==
LOC: ER 14:10
DX: K31.84 Gastroparesis (principal)
CPT/HCPCS: 96365; 96372; 99282; J2405; J2765; J3490